=== PATIENT | male | born 1955 | race African-American/Black ===

== ENCOUNTER 2016-12-12 14:23 | Inpatient (IN) | payer OTHER ==
[2016-12-12 15:29] VITALS: BMI 21.9
--- NOTE | 2016-12-12 19:14 | HP ---
CIWA Score - CIWA Score Nausea/Vomitin Muscle Tremors: 4-Moderate,w/Arms Extend Anxiety: 3 Agitation: 3 Paroxysmal Sweats: 2 Orientation: 1-Uncertain about Date Tacttile Disturbances: 0-None Auditory Disturbances: 0-None Visual Disturbances: 3-Moderate Sensitivity Headache: 0-None Present CIWA-Ar Total Score: 18 Admission ROS BHS - HPI Chief Complaint: WITHDRAWAL SX Allergies/Adverse Reactions: Allergies Allergy/AdvReac Type Severity Reaction Status Date / Time No Known Allergies Allergy Verified 12/12/16 17:45 History of Present Illness: 61 YEARS OLD MALE WITH LONG HISTORY OF ALCOHOL NICOTINE DEPENDENCE, HAS HIV ARTHRITIS NEUROPATHY AND HEPATITIS C DENIES MENTAL ILLNESS IS ADMITTED TO DETOX Exam Limitations: No Limitations - Ebola screening Have you traveled outside of the country in the last 21 days: No Have you had contact with anyone from an Ebola affected area: No Have you been sick,other than usual withdrawal symptoms: No Do you have a fever: No - Review of Systems Constitutional: Chills, Changes in sleep, Unintentional Wgt. Loss EENT: reports: Other (EYE GLASSES) Respiratory: reports: SOB at Rest Cardiac: reports: No Symptoms Reported GI: reports: Nausea, Poor Appetite, Poor Fluid Intake, Vomiting, Abdominal cramping : reports: No Symptoms Reported Musculoskeletal: reports: Joint Pain, Muscle Pain (ARMS HANDS FEET ARTHRITIS) Integumentary: reports: Dryness Neuro: reports: Tremors Endocrine: reports: No Symptoms Reported Hematology: reports: No Symptoms Reported Psychiatric: reports: Judgement Intact, Depressed Other Systems: Reviewed and Negative Patient History - Patient Medical History Hx Anemia: No Hx Asthma: Yes Hx Chronic Obstructive Pulmonary Disease (COPD): No Hx Cancer: No Hx Cardiac Disorders: No Hx Congestive Heart Failure: No Hx Hypertension: No Hx Hypercholesterolemia: No Hx Pacemaker: No HX Cerebrovascular Accident: No Hx Seizures: No Hx Dementia: No Hx Diabetes: No Hx Gastrointestinal Disorders: No Hx Liver Disease: No Hx Genitourinary Disorders: No Hx Sexually Transmitted Disorders: No Hx Renal Disease (ESRD): No Hx Thyroid Disease: No Hx Human Immunodeficiency Virus (HIV): Yes Hx Hepatitis C: Yes Hx Depression: Yes Hx Suicide Attempt: No Hx Bipolar Disorder: No Hx Schizophrenia: No - Patient Surgical History Past Surgical History: No Hx Neurologic Surgery: No Hx Cataract Extraction: No Hx Cardiac Surgery: No Hx Lung Surgery: No Hx Breast Surgery: No Hx Breast Biopsy: No Hx Abdominal Surgery: No Hx Appendectomy: No Hx Cholecystectomy: No Hx Genitourinary Surgery: No Hx Orthopedic Surgery: No - PPD History Previous Implant?: Yes Documented Results: Negative w/o proof Implanted On Prior R Admission?: No PPD to be Administered?: Yes - Smoking Cessation Smoking history: Current every day smoker Have you smoked in the past 12 months: Yes Aproximately how many cigarettes per day: 2 Cigars Per Day: 0 Hx Chewing Tobacco Use: No Initiated information on smoking cessation: Yes 'Breaking Loose' booklet given: 12/12/16 - Substance & Tx. History Hx Alcohol Use: Yes Hx Substance Use: Yes Substance Use Type: Alcohol, Cocaine Hx Substance Use Treatment: Yes - Substances Abused Crack Route: Smoking Frequency: 1-3 times last 30 days Amount used: $150-300 Age of first use: 43 Date of Last Use: 12/10/16 Alcohol-beer Route: Oral Frequency: Daily Amount used: 7 (24 oz.) BEER Age of first use: 17 Date of Last Use: 12/11/16 Family Disease History - Family Disease History Family History: Unremarkable Admission Physical Exam S - Vital Signs Vital Signs: Vital Signs - 24 hr 12/12/16 15:28 Temperature 97.6 F Pulse Rate 83 Respiratory 18 Rate Blood Pressure 144/84 - Physical General Appearance: Yes: Appropriately Dressed, Mild Distress, Thin, Tremorous, Irritable, Sweating, Anxious HEENTM: Yes: Hearing grossly Normal, Normal ENT Inspection, Normocephalic, Normal Voice Respiratory: Yes: Chest Non-Tender, Lungs Clear, Normal Breath Sounds, No Respiratory Distress, No Accessory Muscle Use Neck: Yes: Supple, Trachea in good position Breast: Yes: Breasts Symetrical Cardiology: Yes: Regular Rhythm, Regular Rate, S1, S2 Abdominal: Yes: Non Tender, Soft Genitourinary: Yes: Within Normal Limits Back: Yes: Normal Inspection Musculoskeletal: Yes: full range of Motion, Gait Steady, Muscle Pain Extremities: Yes: Normal Inspection, Normal Range of Motion, Non-Tender, Tremors Neurological: Yes: Alert, Motor Strength 5/5, Normal Response, Depressed Affect Integumentary: Yes: Warm Lymphatic: Yes: Within Normal Limits - Diagnostic (1) Alcohol dependence with uncomplicated withdrawal Current Visit: Yes Status: Acute (2) Nicotine dependence Current Visit: Yes Status: Acute Qualifiers: Nicotine product type: cigarettes Substance use status: in withdrawal Qualified Code(s): F17.213 - Nicotine dependence, cigarettes, with withdrawal (3) HIV (human immunodeficiency virus infection) Current Visit: Yes Status: Chronic (4) Weight loss Current Visit: Yes Status: Acute (5) Hypertension Current Visit: Yes Status: Acute Qualifiers: Hypertension type: essential hypertension Qualified Code(s): I10 - Essential (primary) hypertension (6) Arthritis Current Visit: Yes Status: Chronic (7) Neuropathy Current Visit: Yes Status: Chronic (8) Hepatitis C antibody test positive Current Visit: Yes Status: Chronic (9) Asthma Current Visit: Yes Status: Acute Qualifiers: Asthma severity: mild intermittent Asthma complication type: with status asthmaticus Qualified Code(s): J45.22 - Mild intermittent asthma with status asthmaticus (10) Dry skin Current Visit: Yes Status: Acute Cleared for Admission BHS - Detox or Rehab BHS Level of Care: Medically Managed Detox Regimen/Protocol: Librium BHS Breath Alcohol Content Breath Alcohol Content: 0 Urine Drug Screen - Results Drug Screen Negative: No Urine Drug Screen Results: ZORA-Cocaine
[2016-12-12] MEDS ORDERED: IBUPROFEN 400 MG TABLET (FP) PO PRN (19:21)
[2016-12-12] MEDS ORDERED: guaiFENesin/D-METHORPHAN HB 10 ML UNIT-DOSE CUPS PO PRN (19:21)
[2016-12-12] MEDS ORDERED: LOPERAMIDE HCL 2 MG CAPSULE PO PRN (19:21)
[2016-12-12] MEDS ORDERED: MAG HYDROX/AL HYDROX/SIMETH 30 ML UNIT-DOSE CUP PO PRN (19:21)
[2016-12-12] MEDS ORDERED: P-EPHED 60MG/TRIPROLIDI 2.5MG TABLET PO PRN (19:21)
[2016-12-12] MEDS ORDERED: MAGNESIUM CITRATE 300 ML BOTTLE PO PRN (19:21)
[2016-12-12] MEDS ORDERED: MAGNESIUM HYDROX 2400MG/30ML ORAL SUSPENSION 30 ML CUP PO PRN (19:21)
[2016-12-12] MEDS ORDERED: chlordiazePOXIDE HCL 25 MG CAPSULE PO PRN (19:21)
[2016-12-12] MEDS ORDERED: hydrOXYzine PAMOATE 50 MG CAPSULE (FP) PO PRN (19:21)
[2016-12-12] MEDS ORDERED: MENTHOL/PHENOL 1 EACH UD MM PRN (19:21)
[2016-12-12] MEDS ORDERED: ACETAMINOPHEN 325 MG TABLET (FP) PO PRN (19:21)
[2016-12-12] MEDS ORDERED: NICOTINE POLACRILEX 2 MG GUM BC PRN (19:21)
[2016-12-12] MEDS ORDERED: ALBUTEROL SO4 6.7 GM HFA INHALER IH PRN (19:24)
[2016-12-12] MEDS ORDERED: ONDANSETRON *ODT* 4 MG TABLET SL PRN (19:24)
[2016-12-12] MEDS ORDERED: COLLOIDAL OATMEAL 1 BAR EACH TP PRN (19:25)
[2016-12-12] MEDS: THIAMINE HCL 100 MG TABLET (FP) PO SCH (22:33)
[2016-12-12] MEDS: chlordiazePOXIDE HCL 25 MG CAPSULE PO SCH (22:33)
[2016-12-12] MEDS: diphenhydrAMINE HCL 50 MG CAPSULE PO PRN (22:34)
[2016-12-12] MEDS: MINERAL OIL/PETROLAT/WATER TOPICAL CREAM 113 GM JAR TP SCH (22:34)
[2016-12-12 22:50] LABS: URINE APPEARANCE CLEAR; URINE BILIRUBIN NEGATIVE (NEGATIVE); URINE BLOOD NEGATIVE (NEGATIVE); URINE COLOR YELLOW; URINE GLUCOSE (UA) NEGATIVE (NEGATIVE); URINE KETONE NEGATIVE (NEGATIVE); URINE LEUK ESTERASE NEGATIVE (NEGATIVE); URINE NITRITE NEGATIVE (NEGATIVE); URINE PROTEIN NEGATIVE (NEGATIVE); URINE UROBILINOGEN NEGATIVE E.U./dl (0.2-1.0)
[2016-12-13] MEDS: chlordiazePOXIDE HCL 25 MG CAPSULE PO SCH ×4 (05:57→22:54)
[2016-12-13] MEDS ORDERED: AMOX TR/POT CLAV 875MG/125MG TABLETS (FP) PO ONE (09:37)
--- NOTE | 2016-12-13 09:37 | PN ---
BHS CIWA - CIWA Score Nausea/Vomitin Muscle Tremors: 4-Moderate,w/Arms Extend Agitation: 4-Moderately Restless Paroxysmal Sweats: 3 Orientation: 0-Oriented Tacttile Disturbances: 1-Very Mild Itch/Numbness Auditory Disturbances: 0-None Visual Disturbances: 0-None Headache: 1-Very Mild BHS Progress Note (SOAP) Subjective: nausea, sweats, itnerrupted sleep, anxiety, tremor, toothache left lower jaw, new onset Objective: 12/13/16 09:35 Vital Signs - 8 hr 12/13/16 12/13/16 03:30 06:36 Temperature 96.3 F L Pulse Rate 64 Respiratory 18 18 Rate Blood Pressure 140/81 Laboratory Tests 12/12/16 21:59 Urine Color Yellow Urine Appearance Clear Urine pH 5.0 Ur Specific [place] 1.026 Urine Protein Negative Urine Glucose (UA) Negative Urine Ketones Negative Urine Blood Negative Urine Nitrite Negative Urine Bilirubin Negative Urine Urobilinogen Negative Ur Leukocyte Esterase Negative labs still pending Assessment: 12/13/16 09:36 withdrawal sx, dental caries/pain Plan: cont detox, pain medicatios and antibiotics , fluids
[2016-12-13] MEDS ORDERED: ALBUTEROL SO4 6.7 GM HFA INHALER IH PRN (09:38)
[2016-12-13] MEDS: PRENATAL VITAMINS W/ FOLIC ACID TABLET (FP) PO SCH (10:30)
[2016-12-13] MEDS: NICOTINE 14 MG/24 HOURS TOPICAL PATCH TD SCH (10:31)
[2016-12-13] MEDS: NAPROXEN 500 MG TABLET (FP) PO SCH ×2 (10:31→22:53)
[2016-12-13] MEDS: LISINOPRIL 10 MG TABLET (FP) PO SCH (10:31)
[2016-12-13] MEDS: LIDOCAINE VISCOUS 2% ORAL/TOP 20 ML UNIT-DOSE CUP MM PRN ×2 (10:32→20:35)
[2016-12-13 10:42] LABS: MCH 27.4 pg (25.7-33.7); MCHC 32.1 g/dl (32.0-35.9); MEAN CELL VOLUME 85.2 fl (80-96); MEAN PLT VOLUME 9.9 fl (7.5-11.1); PLATELET COUNT 222 K/MM3 (134-434); RDW 14.6 % (11.9-15.9); WHITE BLOOD COUNT 5.5 K/mm3 (4.0-10.0)
[2016-12-13 10:49] LABS: ALBUMIN 3.6 g/dl (3.4-5.0); ANION GAP 8 (8-16); BILIRUBIN,TOTAL 0.6 mg/dL (0.2-1.0); CALCIUM 9.5 mg/dL (8.5-10.1); CO2 30 mmol/L (21-32); CREATININE 1.1 mg/dL (0.7-1.3); GLUCOSE,RANDOM 134 mg/dL (74-106); SGOT/AST 38 U/L (15-37); SGPT/ALT 38 U/L (12-78)
[2016-12-13 10:50] LABS: ALK PHOS 96 U/L (45-117)
--- NOTE | 2016-12-13 14:05 | CONSULT ---
[facility] Psychiatric Consult - Data Date of interview: 12/13/16 Admission source: [facility] Identifying data: First admission to [facility] for this 61 y/o AA male seeking detox treatmnet on for alcohol and cocaine (crack) dependence.Patient is single without children,domiciled (transitional housing),unemployed and supported on SSI benefits. Substance Abuse History: - Smoking Cessation. Smoking history: Current every day smoker. Have you smoked in the past 12 months: Yes. Aproximately how many cigarettes per day: 2. Cigars Per Day: 0. Hx Chewing Tobacco Use: No. Initiated information on smoking cessation: Yes. 'Breaking Loose' booklet given : 12/12/16. - Substance & Tx. History. Hx Alcohol Use: Yes. Hx Substance Use : Yes. Substance Use Type: Alcohol, Cocaine. Hx Substance Use Treatment: Yes. - Substances Abused. Crack. Route: Smoking. Frequency: 1-3 times last 30 days. Amount used: $150-300. Age of first use: 43. Date of Last Use: 12/10. Alcohol-beer. Route: Oral. Frequency: Daily. Amount used: 7 (24 oz. ) BEER. Age of first use: 17. Date of Last Use: 12/11/16. Confirmed by the patient. Medical History: HIV infection since 1994 (on ART medications),hepatitis C, neuropathy,bronchial asthma and sickle cell trait. Psychiatric History: No reported history of psychiatric hospitalizations.Mr Ayala sees a psychiatrist at the [facility] program in [facility].He states that he gets " counseling " and he denies being prescribed psychotropic medications.Diagnosis remains unclear at this time.No history of suicide attempts. Physical/Sexual Abuse/Trauma History: Patient denies. Additional Comment: Urine Drug Screen Results: ZORA-Cocaine.Noted. Mental Status Exam - Mental Status Exam Alert and Oriented to: Time, Place, Person Cognitive Function: Good Patient Appearance: Well Groomed Mood: Hopeful, Euthymic Affect: Appropriate, Normal Range Patient Behavior: Fatigued, Talkative, Appropriate, Cooperative Speech Pattern: Clear, Appropriate Voice Loudness: Normal Thought Process: Goal Oriented Thought Disorder: Not Present Hallucinations: Denies Suicidal Ideation: Denies Homicidal Ideation: Denies Insight/Judgement: Fair Sleep: Well Appetite: Good Muscle strength/Tone: Normal Gait/Station: Normal Psychiatric Findings - Problem List ([place] 1, 2,3) (1) Alcohol dependence with uncomplicated withdrawal Current Visit: Yes Status: Acute (2) Nicotine dependence Current Visit: Yes Status: Acute Qualifiers: Nicotine product type: cigarettes Substance use status: in withdrawal Qualified Code(s): F17.213 - Nicotine dependence, cigarettes, with withdrawal (3) Cocaine dependence Current Visit: Yes Status: Acute (4) Asthma Current Visit: Yes Status: Chronic Qualifiers: Asthma severity: mild intermittent Asthma complication type: with status asthmaticus Qualified Code(s): J45.22 - Mild intermittent asthma with status asthmaticus (5) Hypertension Current Visit: Yes Status: Chronic Qualifiers: Hypertension type: essential hypertension Qualified Code(s): I10 - Essential (primary) hypertension (6) Weight loss Current Visit: Yes Status: Chronic (7) Arthritis Current Visit: Yes Status: Chronic (8) HIV (human immunodeficiency virus infection) Current Visit: Yes Status: Chronic (9) Hepatitis C antibody test positive Current Visit: Yes Status: Chronic (10) Neuropathy Current Visit: Yes Status: Chronic - Initial Treatment Plan Initial Treatment Plan: Psychoeducation.Detoxification.Observation.
[2016-12-13] MEDS: AMOX TR/POT CLAV 875MG/125MG TABLETS (FP) PO SCH (17:42)
--- NOTE | 2016-12-13 18:37 | EKG ---
Test Reason : Blood Pressure : / mmHG Vent. Rate : 073 BPM Atrial Rate : 073 BPM P-R Int : 170 ms QRS Dur : 086 ms QT Int : 404 ms P-R-T Axes : 060 036 037 degrees QTc Int : 445 ms NORMAL SINUS RHYTHM POSSIBLE LEFT ATRIAL ENLARGEMENT NONSPECIFIC ST AND T WAVE ABNORMALITY NO PREVIOUS ECGS AVAILABLE Confirmed by KRISTAL HINOJOSA MD ([id number]) on 12/13/2016 6:36:43 PM Referred By: Nilo Thompson Confirmed By:KRISTAL HINOJOSA MD
[2016-12-13] MEDS: MINERAL OIL/PETROLAT/WATER TOPICAL CREAM 113 GM JAR TP SCH (22:53)
[2016-12-13] MEDS: THIAMINE HCL 100 MG TABLET (FP) PO SCH (22:53)
[2016-12-14] MEDS: chlordiazePOXIDE HCL 25 MG CAPSULE PO SCH ×3 (05:51→17:47)
[2016-12-14] MEDS: AMOX TR/POT CLAV 875MG/125MG TABLETS (FP) PO SCH ×2 (07:47→19:53)
[2016-12-14] MEDS: LISINOPRIL 10 MG TABLET (FP) PO SCH (10:39)
[2016-12-14] MEDS: NAPROXEN 500 MG TABLET (FP) PO SCH ×2 (10:39→22:33)
[2016-12-14] MEDS: PRENATAL VITAMINS W/ FOLIC ACID TABLET (FP) PO SCH (10:39)
[2016-12-14] MEDS: NICOTINE 14 MG/24 HOURS TOPICAL PATCH TD SCH (10:40)
--- NOTE | 2016-12-14 14:23 | PN ---
S CIWA - CIWA Score Nausea/Vomitin Muscle Tremors: 3 Anxiety: 4-Mod. Anxious/Guarded Agitation: 3 Paroxysmal Sweats: No Perspiration Orientation: 0-Oriented Tacttile Disturbances: 1-Very Mild Itch/Numbness Auditory Disturbances: 0-None Visual Disturbances: 0-None Headache: 2-Mild CIWA-Ar Total Score: 16 BHS Progress Note (SOAP) Subjective: Tremor, sweating, interrupted sleep, nausea, anxious Objective: 12/14/16 14:20 Last Vital Signs Temp Pulse Resp BP Pulse Ox 98 F 90 20 110/73 12/14/16 14:03 12/14/16 14:03 12/14/16 14:03 12/14/16 14:03 Laboratory Tests 12/12/16 12/13/16 12/13/16 21:59 06:00 06:00 WBC 5.5 RBC 4.76 Hgb 13.0 Hct 40.6 MCV 85.2 MCHC 32.1 RDW 14.6 Plt Count 222 MPV 9.9 Sodium 139 Potassium 4.0 Chloride 101 Carbon Dioxide 30 Anion Gap 8 BUN 16 Creatinine 1.1 Creat Clearance w eGFR > 60 Random Glucose 134 H Calcium 9.5 Total Bilirubin 0.6 AST 38 H ALT 38 Alkaline Phosphatase 96 Total Protein 10.0 H Albumin 3.6 Urine Color Yellow Urine Appearance Clear Urine pH 5.0 Ur Specific [place] 1.026 Urine Protein Negative Urine Glucose (UA) Negative Urine Ketones Negative Urine Blood Negative Urine Nitrite Negative Urine Bilirubin Negative Urine Urobilinogen Negative Ur Leukocyte Esterase Negative RPR Titer 12/13/16 06:00 WBC RBC Hgb Hct MCV MCHC RDW Plt Count MPV Sodium Potassium Chloride Carbon Dioxide Anion Gap BUN Creatinine Creat Clearance w eGFR Random Glucose Calcium Total Bilirubin AST ALT Alkaline Phosphatase Total Protein Albumin Urine Color Urine Appearance Urine pH Ur Specific [place] Urine Protein Urine Glucose (UA) Urine Ketones Urine Blood Urine Nitrite Urine Bilirubin Urine Urobilinogen Ur Leukocyte Esterase RPR Titer Nonreactive Labs noted Assessment: 12/14/16 14:20 Withdrawal symptoms Plan: Continue detox
[2016-12-14] MEDS: LIDOCAINE VISCOUS 2% ORAL/TOP 20 ML UNIT-DOSE CUP MM PRN (18:02)
[2016-12-14] MEDS: chlordiazePOXIDE 5 MG CAPSULE PO SCH (22:33)
[2016-12-14] MEDS: MINERAL OIL/PETROLAT/WATER TOPICAL CREAM 113 GM JAR TP SCH (22:34)
[2016-12-14] MEDS: diphenhydrAMINE HCL 50 MG CAPSULE PO PRN (22:34)
[2016-12-14] MEDS: THIAMINE HCL 100 MG TABLET (FP) PO SCH (22:34)
[2016-12-15] MEDS: chlordiazePOXIDE 5 MG CAPSULE PO SCH ×3 (05:52→17:08)
[2016-12-15] MEDS: AMOX TR/POT CLAV 875MG/125MG TABLETS (FP) PO SCH ×2 (07:07→17:07)
[2016-12-15] MEDS: PRENATAL VITAMINS W/ FOLIC ACID TABLET (FP) PO SCH (10:29)
[2016-12-15] MEDS: NAPROXEN 500 MG TABLET (FP) PO SCH ×2 (10:29→22:40)
[2016-12-15] MEDS: LISINOPRIL 10 MG TABLET (FP) PO SCH (10:29)
[2016-12-15] MEDS: NICOTINE 14 MG/24 HOURS TOPICAL PATCH TD SCH (10:30)
--- NOTE | 2016-12-15 13:58 | PN ---
S Progress Note (SOAP) Subjective: Interrupted sleep, Tremors. Objective: PT. A & O X 3. 12/15/16 13:56 Vital Signs Temperature 97.5 F L 12/15/16 13:23 Pulse Rate 91 H 12/15/16 13:23 Respiratory Rate 20 12/15/16 13:23 Blood Pressure 112/68 12/15/16 13:23 O2 Sat by Pulse Oximetry (%) Laboratory Last Values WBC 5.5 K/mm3 (4.0-10.0) 12/13/16 06:00 RBC 4.76 M/mm3 (4.00-5.60) 12/13/16 06:00 Hgb 13.0 GM/dL (11.7-16.9) 12/13/16 06:00 Hct 40.6 % (35.4-49) 12/13/16 06:00 MCV 85.2 fl (80-96) 12/13/16 06:00 MCHC 32.1 g/dl (32.0-35.9) 12/13/16 06:00 RDW 14.6 % (11.9-15.9) 12/13/16 06:00 Plt Count 222 K/MM3 (134-434) 12/13/16 06:00 MPV 9.9 fl (7.5-11.1) 12/13/16 06:00 Sodium 139 mmol/L (136-145) 12/13/16 06:00 Potassium 4.0 mmol/L (3.5-5.1) 12/13/16 06:00 Chloride 101 mmol/L (98-107) 12/13/16 06:00 Carbon Dioxide 30 mmol/L (21-32) 12/13/16 06:00 Anion Gap 8 (8-16) 12/13/16 06:00 BUN 16 mg/dL (7-18) 12/13/16 06:00 Creatinine 1.1 mg/dL (0.7-1.3) 12/13/16 06:00 Creat Clearance w eGFR > 60 (>60) 12/13/16 06:00 Random Glucose 134 mg/dL (74-106) H 12/13/16 06:00 Calcium 9.5 mg/dL (8.5-10.1) 12/13/16 06:00 Total Bilirubin 0.6 mg/dL (0.2-1.0) 12/13/16 06:00 AST 38 U/L (15-37) H 12/13/16 06:00 ALT 38 U/L (12-78) 12/13/16 06:00 Alkaline Phosphatase 96 U/L (45-117) 12/13/16 06:00 Total Protein 10.0 g/dl (6.4-8.2) H 12/13/16 06:00 Albumin 3.6 g/dl (3.4-5.0) 12/13/16 06:00 Urine Color Yellow 12/12/16 21:59 Urine Appearance Clear 12/12/16 21:59 Urine pH 5.0 (5.0-8.0) 12/12/16 21:59 Ur Specific [place] 1.026 (1.001-1.035) 12/12/16 21:59 Urine Protein Negative (NEGATIVE) 12/12/16 21:59 Urine Glucose (UA) Negative (NEGATIVE) 12/12/16 21:59 Urine Ketones Negative (NEGATIVE) 12/12/16 21:59 Urine Blood Negative (NEGATIVE) 12/12/16 21:59 Urine Nitrite Negative (NEGATIVE) 12/12/16 21:59 Urine Bilirubin Negative (NEGATIVE) 12/12/16 21:59 Urine Urobilinogen Negative E.U./dl (0.2-1.0) 12/12/16 21:59 Ur Leukocyte Esterase Negative (NEGATIVE) 12/12/16 21:59 RPR Titer Nonreactive (NONREACTIVE) 12/13/16 06:00 LABS NOTED. Assessment: 12/15/16 13:57 WITHDRAWAL SYMPTOMS. Plan: CONTINUE DETOX. ADVISED PT. TO FOLLOW-UP WITH [facility] / REHAB MEDICAL PROVIDER AFTER DISCHARGE FROM DETOX FOR GENERAL MEDICAL ASSESSMENT AND FOR ABNORMAL LAB VALUES.
[2016-12-15] MEDS: LIDOCAINE VISCOUS 2% ORAL/TOP 20 ML UNIT-DOSE CUP MM PRN (17:10)
[2016-12-15] MEDS: THIAMINE HCL 100 MG TABLET (FP) PO SCH (22:40)
[2016-12-15] MEDS: chlordiazePOXIDE HCL 10 MG CAPSULE PO SCH (22:40)
[2016-12-15] MEDS: MINERAL OIL/PETROLAT/WATER TOPICAL CREAM 113 GM JAR TP SCH (22:53)
[2016-12-16] MEDS: chlordiazePOXIDE HCL 10 MG CAPSULE PO SCH (05:50)
[2016-12-16] MEDS: AMOX TR/POT CLAV 875MG/125MG TABLETS (FP) PO SCH (07:42)
[2016-12-16] MEDS: PRENATAL VITAMINS W/ FOLIC ACID TABLET (FP) PO SCH (09:16)
[2016-12-16] MEDS: LISINOPRIL 10 MG TABLET (FP) PO SCH (09:16)
[2016-12-16] MEDS: NAPROXEN 500 MG TABLET (FP) PO SCH (09:16)
[2016-12-16 09:54] VITALS: BP 152/81; PULSE 94; TEMP 97.1
--- NOTE | 2016-12-16 10:54 | DS ---
[facility] Detox Discharge Summary Admission Date: 12/12/16 Discharge Date: 12/16/16 - History Present History: Alcohol Dependence, Cocaine Dependence Pertinent Past History: HIV HTN HEP C ASTHMA - Physical Exam Results Vital Signs: Vital Signs Temperature 97.1 F L 12/16/16 09:53 Pulse Rate 94 H 12/16/16 09:53 Respiratory Rate 18 12/16/16 09:53 Blood Pressure 152/81 12/16/16 09:53 O2 Sat by Pulse Oximetry (%) Pertinent Admission Physical Exam Findings: WITHDRAWAL SX. Laboratory Last Values WBC 5.5 K/mm3 (4.0-10.0) 12/13/16 06:00 RBC 4.76 M/mm3 (4.00-5.60) 12/13/16 06:00 Hgb 13.0 GM/dL (11.7-16.9) 12/13/16 06:00 Hct 40.6 % (35.4-49) 12/13/16 06:00 MCV 85.2 fl (80-96) 12/13/16 06:00 MCHC 32.1 g/dl (32.0-35.9) 12/13/16 06:00 RDW 14.6 % (11.9-15.9) 12/13/16 06:00 Plt Count 222 K/MM3 (134-434) 12/13/16 06:00 MPV 9.9 fl (7.5-11.1) 12/13/16 06:00 Sodium 139 mmol/L (136-145) 12/13/16 06:00 Potassium 4.0 mmol/L (3.5-5.1) 12/13/16 06:00 Chloride 101 mmol/L (98-107) 12/13/16 06:00 Carbon Dioxide 30 mmol/L (21-32) 12/13/16 06:00 Anion Gap 8 (8-16) 12/13/16 06:00 BUN 16 mg/dL (7-18) 12/13/16 06:00 Creatinine 1.1 mg/dL (0.7-1.3) 12/13/16 06:00 Creat Clearance w eGFR > 60 (>60) 12/13/16 06:00 Random Glucose 134 mg/dL (74-106) H 12/13/16 06:00 Calcium 9.5 mg/dL (8.5-10.1) 12/13/16 06:00 Total Bilirubin 0.6 mg/dL (0.2-1.0) 12/13/16 06:00 AST 38 U/L (15-37) H 12/13/16 06:00 ALT 38 U/L (12-78) 12/13/16 06:00 Alkaline Phosphatase 96 U/L (45-117) 12/13/16 06:00 Total Protein 10.0 g/dl (6.4-8.2) H 12/13/16 06:00 Albumin 3.6 g/dl (3.4-5.0) 12/13/16 06:00 Urine Color Yellow 12/12/16 21:59 Urine Appearance Clear 12/12/16 21:59 Urine pH 5.0 (5.0-8.0) 12/12/16 21:59 Ur Specific [place] 1.026 (1.001-1.035) 12/12/16 21:59 Urine Protein Negative (NEGATIVE) 12/12/16 21:59 Urine Glucose (UA) Negative (NEGATIVE) 12/12/16 21:59 Urine Ketones Negative (NEGATIVE) 12/12/16 21:59 Urine Blood Negative (NEGATIVE) 12/12/16 21:59 Urine Nitrite Negative (NEGATIVE) 12/12/16 21:59 Urine Bilirubin Negative (NEGATIVE) 12/12/16 21:59 Urine Urobilinogen Negative E.U./dl (0.2-1.0) 12/12/16 21:59 Ur Leukocyte Esterase Negative (NEGATIVE) 12/12/16 21:59 RPR Titer Nonreactive (NONREACTIVE) 12/13/16 06:00 LABS NOTED - Treatment Hospital Course: Detox Protocol Followed, Detoxed Safely, Responded well, Discharged Condition Good, Rehab Referral Accepted - Medication Discharge Medications: Ambulatory Orders Abacavir/Dolutegravir/Lamivudi [Triumeq Tablet] 1 each PO DAILY 12/12/16 Albuterol Sulfate Inhaler - [Ventolin Hfa Inhaler -] 2 inh PO Q4H PRN 12/12/16 - Diagnosis (1) Alcohol dependence with uncomplicated withdrawal Status: Acute (2) Cocaine dependence Status: Acute Qualifiers: Substance use status: uncomplicated Qualified Code(s): F14.20 - Cocaine dependence, uncomplicated (3) Nicotine dependence Status: Acute Qualifiers: Nicotine product type: cigarettes Substance use status: in withdrawal Qualified Code(s): F17.213 - Nicotine dependence, cigarettes, with withdrawal (4) Arthritis Status: Chronic (5) Asthma Status: Chronic Qualifiers: Asthma severity: mild intermittent Asthma complication type: with status asthmaticus Qualified Code(s): J45.22 - Mild intermittent asthma with status asthmaticus (6) HIV (human immunodeficiency virus infection) Status: Chronic (7) Hepatitis C antibody test positive Status: Chronic (8) Hypertension Status: Chronic Qualifiers: Hypertension type: essential hypertension Qualified Code(s): I10 - Essential (primary) hypertension - AMA Did Patient Leave Against Medical Advice: No
== END 2016-12-16 08:30 | disposition home or self-care (01) | DRG 774 ==
LOC: YASAS 14:23 → Y3N 19:00
PROVIDERS: ADMIT Internal Medicine; ATTEND Internal Medicine
PROC: HZ2ZZZZ Detoxification Services for Substance Abuse Treatment (ICD-10-PCS; principal; 2016-12-16)
DX: F10.230 Alcohol dependence with withdrawal, uncomplicated (principal); F14.20 Cocaine dependence, uncomplicated; F17.210 Nicotine dependence, cigarettes, uncomplicated; B18.2 Chronic viral hepatitis C; Z21 Asymptomatic human immunodeficiency virus [HIV] infection status; I10 Essential (primary) hypertension; J45.22 Mild intermittent asthma with status asthmaticus; G62.9 Polyneuropathy, unspecified; R63.4 Abnormal weight loss; Z68.22 Body mass index [BMI] 22.0-22.9, adult; M12.9 Arthropathy, unspecified
CPT/HCPCS: 36415; 80053; 81003; 85027; 86593; 93005; 93010